=== PATIENT | male | born 1990 | race Caucasian/White ===

== ENCOUNTER 2017-02-13 19:44 | Emergency (ER) | payer OTHER ==
[~2017-02-13] VITALS: Ht 162.6 cm; Wt 74.8 kg
[~2017-02-13 19:44] MED LIST: [UNRECOGNIZED DRUG - CODE] PO
[2017-02-13] MEDS ORDERED: ONDANSETRON IV *ER 4 MG/2 ML VIAL IV ONE (20:15)
[2017-02-13] MEDS ORDERED: IV NORMAL SALINE 1000 ML BAG IV ONE ×2 (20:15→22:00)
[2017-02-13 20:23] LABS: BASOPHILS # (AUTO) 0.7 K/uL (0.0-8.0); BASOPHILS % (AUTO) 3.9 % (0.0-2.0); EOSINOPHILS # (AUTO) 0.2 K/uL (0.0-0.7); EOSINOPHILS % (AUTO) 0.9 % (0.0-7.0); HEMATOCRIT 48.5 % (40-50); HEMOGLOBIN 16.4 G/DL (14.0-18.0); LYMPHOCYTES # (AUTO) 2.5 K/UL (0.8-4.8); LYMPHOCYTES % (AUTO) 13.4 % (20.5-51.5); MEAN CORPUSCULAR HEMOGLOBIN 30.3 UUG (27.0-31.0); MEAN CORPUSCULAR HGB CONC 34 g/dL (32.0-37.0); MEAN CORPUSCULAR VOLUME 89.7 FL (82.0-92.0); MONOCYTES % (AUTO) 5.5 % (0.0-11.0); NEUTROPHILS % (AUTO) 76.3 % (38.5-71.5); PLATELET COUNT (AUTO) 273 K/UL (150-450); RED BLOOD CELL COUNT(AUTO) 5.41 MIL/UL (4.7-6.1); WHITE BLOOD COUNT (AUTO) 18.4 K/UL (4.0-11.2)
[2017-02-13] MEDS ORDERED: ONDANSETRON 4 MG/2 ML VIAL ONE (20:26)
[2017-02-13 20:29] LABS: CREATININE 0.8 mg/dL (0.6-1.3); POTASSIUM 3.1 mmol/L (3.5-5.1)
[2017-02-13] MEDS ORDERED: PANTOPRAZOLE SODIUM IV 40 MG in IV DEXTROSE 5% 100 ML IV ONE (20:30)
[2017-02-13 20:36] LABS: BILIRUBIN,DIRECT 0.1 mg/dL (0.0-0.2); BILIRUBIN,TOTAL 0.4 mg/dL (0.2-1.0); TOTAL PROTEIN, SERUM 8.3 g/dL (6.4-8.2)
[2017-02-13] MEDS ORDERED: PANTOPRAZOLE SODIUM 40 MG VIAL ONE (20:42)
[2017-02-13] MEDS ORDERED: POTASSIUM CHLORIDE 50 ML ONE (21:09)
[2017-02-13] MEDS ORDERED: MORPHINE SULFATE 4 MG/1 ML DISP.SYRIN IV ONE (21:45)
[2017-02-13] MEDS ORDERED: MORPHINE SULFATE 2 MG/1 ML DISP.SYRIN ONE (21:58)
[2017-02-13] MEDS: POTASSIUM CHLORIDE 50 ML IV SCH ×2 (22:07→23:04)
[2017-02-13] MEDS ORDERED: POTASSIUM CHLORIDE 10 MEQ CAPSULE.SA PO ONE (23:00)
[2017-02-13 23:08] LABS: *BILIRUBIN,URIN NEGATIVE (NEGATIVE); *BLOOD, URINE NEGATIVE (NEGATIVE); *CLARITY,URINE CLEAR (CLEAR); *COLOR,URINE YELLOW (YELLOW); *KETONES,URINE 3+ (NEGATIVE); *PROTEIN,URINE TRACE (NEGATIVE); *UROBILINOGEN,URINE 0.2 E.U./dl (NORMAL); LEUKOCYTE ESTERASE ,URINE NEGATIVE (NEGATIVE); NITRITE, URINE NEGATIVE (NEGATIVE); UGLUCOSE NEGATIVE (NEGATIVE)
[2017-02-13 23:16] LABS: BACTERIA,URINE FEW /HPF (NONE SEEN); RBC,URINE 0-3 /HPF (0-3); SQUAMOUS EPITHELIAL CELL,UR FEW /HPF (NONE SEEN); WBC,URINE 0-3 /HPF (0-3)
--- NOTE | 2017-02-13 23:16 | NUR ---
Patient discharged to home in stable conditon. Written and verbal after care instructions given. Patient verbalizes understanding of instructions.
[2017-02-13] MEDS ORDERED: POTASSIUM CHLORIDE 10 MEQ CAPSULE.SA ONE (23:19)
== END 2017-02-13 23:17 | disposition home or self-care (01) ==
LOC: ER 19:46
DX: R10.13 Epigastric pain (principal); E87.6 Hypokalemia; E86.0 Dehydration; R11.0 Nausea; D72.829 Elevated white blood cell count, unspecified; F10.10 Alcohol abuse, uncomplicated; F19.10 Other psychoactive substance abuse, uncomplicated; F12.90 Cannabis use, unspecified, uncomplicated
CPT/HCPCS: 36415; 83690; 85025; A4663; C9113; J2270; J2405; J3480; J7030

== ENCOUNTER 2017-03-22 21:54 | Emergency (ER) | payer OTHER ==
[~2017-03-22] VITALS: Ht 162.6 cm; Wt 72.6 kg
--- NOTE | 2017-03-22 22:09 | NUR ---
Dr. Lewis at bedside for MSE
--- NOTE | 2017-03-22 22:10 | NUR ---
Pt ambulated to room with steady gait and changed into gown. Pt c/o severe abd pain, N/V that started yesterday. at bedside, awaiting further orders.
[2017-03-22] MEDS ORDERED: LIDOCAINE VISCUS 2% 15 ML UDC MM ONE (22:15)
[2017-03-22] MEDS ORDERED: MAG HYDROX/AL HYDROX/SIMETH 30 ML LIQUID UDC PO ONE (22:15)
[2017-03-22] MEDS ORDERED: IV NORMAL SALINE 1000 ML BAG IV ONE (22:15)
[2017-03-22] MEDS ORDERED: ONDANSETRON 4 MG/2 ML VIAL IV ONE (22:15)
[2017-03-22] MEDS ORDERED: METOCLOPRAMIDE HCL 10 MG/2 ML VIAL IV ONE (22:15)
[2017-03-22] MEDS ORDERED: DICYCLOMINE HCL 10 MG/5 ML UDC LIQ PO ONE (22:15)
[2017-03-22] MEDS ORDERED: METOCLOPRAMIDE HCL 10 MG/2 ML VIAL ONE (22:38)
[2017-03-22] MEDS ORDERED: MAG HYDROX/AL HYDROX/SIMETH 30 ML LIQUID UDC ONE (22:38)
[2017-03-22] MEDS ORDERED: LIDOCAINE VISCUS 2% 15 ML UDC ONE (22:39)
[2017-03-22] MEDS ORDERED: DICYCLOMINE HCL 10 MG/5 ML UDC LIQ ONE (22:39)
[2017-03-22] MEDS ORDERED: ONDANSETRON 4 MG/2 ML VIAL ONE (22:39)
[2017-03-22 22:41] LABS: BASOPHILS # (AUTO) 0.2 K/uL (0.0-8.0); EOSINOPHILS % (AUTO) 0.1 % (0.0-7.0); HEMATOCRIT 48.8 % (40-50); HEMOGLOBIN 17.1 G/DL (14.0-18.0); LYMPHOCYTES % (AUTO) 5.6 % (20.5-51.5); MEAN CORPUSCULAR HEMOGLOBIN 31.3 UUG (27.0-31.0); MEAN CORPUSCULAR HGB CONC 35 g/dL (32.0-37.0); MEAN CORPUSCULAR VOLUME 89.5 FL (82.0-92.0); MONOCYTES # (AUTO) 0.6 K/UL (0.1-1.30); MONOCYTES % (AUTO) 3.2 % (0.0-11.0); NEUTROPHILS # (AUTO) 15.9 K/UL (1.8-8.9); NEUTROPHILS % (AUTO) 90.1 % (38.5-71.5); PLATELET COUNT (AUTO) 232 K/UL (150-450); RED BLOOD CELL COUNT(AUTO) 5.45 MIL/UL (4.7-6.1); WHITE BLOOD COUNT (AUTO) 17.7 K/UL (4.0-11.2)
--- NOTE | 2017-03-22 22:44 | NUR ---
IV established, labs drawn and sent. Pt medicated for discomfort and N/V, will monitor for effects of medication. Fluid bolus infusing freely to gravity. Pt resting in position of comfort for self.
[2017-03-22 22:59] LABS: BAND % (MANUAL) 5 % (0-10); LYMPHOCYTES % (MANUAL) 8 % (20-40); MONOCYTES % (MANUAL) 3 % (2-10); NEUTROPHILS % (MANUAL) 84 % (42-75)
[2017-03-22 23:03] LABS: BILIRUBIN,DIRECT 0.1 mg/dL (0.0-0.2); BILIRUBIN,TOTAL 0.7 mg/dL (0.2-1.0); CREATININE 1.1 mg/dL (0.6-1.3); POTASSIUM 3.2 mmol/L (3.5-5.1); TOTAL PROTEIN, SERUM 8.7 g/dL (6.4-8.2)
[2017-03-22] MEDS ORDERED: OXYCODONE/APAP 5-325 MG TABLET PO ONE ×2 (23:15→23:45)
--- NOTE | 2017-03-22 23:16 | NUR ---
Pt cont to c/o pain. MD notified and pt medicated, will monitor for effects of medication. Fluid bolus cont to infuse freely to gravity.
[2017-03-22] MEDS ORDERED: OXYCODONE/APAP 5-325 MG TABLET ONE (23:18)
[2017-03-22] MEDS ORDERED: FAMOTIDINE. 20 MG/2 ML VIAL IV ONE (23:45)
[2017-03-23] MEDS ORDERED: FAMOTIDINE. 20 MG/2 ML VIAL IV ONE
[2017-03-23] MEDS ORDERED: OXYCODONE/APAP 5-325 MG TABLET ONE
--- NOTE | 2017-03-23 | NUR ---
Pt stable for discharge per MD. IV dc'd, catheter intact. Drsg applied. No problems noted to site. Pt given ACI. Pt verbalized understanding of dc instructions. 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
[2017-03-23 00:03] VITALS: BP 152/91
== END 2017-03-23 00:03 | disposition home or self-care (01) ==
LOC: ER 21:55
DX: R10.10 Upper abdominal pain, unspecified (principal); R11.2 Nausea with vomiting, unspecified; F10.20 Alcohol dependence, uncomplicated; R55 Syncope and collapse; F12.10 Cannabis abuse, uncomplicated
CPT/HCPCS: 36415; 76705; 80048; 80076; 83690; 85025; 96361; 96374; 96375; 99285; A4663; J2405; J2765; J3490; J7030

== ENCOUNTER 2017-03-26 12:05 | Emergency (ER) | payer OTHER ==
[~2017-03-26] VITALS: Ht 162.6 cm; Wt 74.8 kg
[2017-03-26] MEDS ORDERED: PANT40TA2 PO (12:14)
[2017-03-26] MEDS ORDERED: ONDA4TAB8 PO (12:14)
[2017-03-26] MEDS ORDERED: METOCLOPRAMIDE HCL 10 MG/2 ML VIAL IM ONE (12:30)
[2017-03-26] MEDS ORDERED: diphenhydrAMINE 50 MG/1 ML VIAL IM ONE (12:30)
[2017-03-26] MEDS ORDERED: PANTOPRAZOLE SODIUM 40 MG TABLET.DR PO ONE ×2 (12:30→12:48)
--- NOTE | 2017-03-26 12:30 | NUR ---
PT IS IN ROOM #2B, DR GAONA EVALUATED THE PT.
[2017-03-26] MEDS ORDERED: diphenhydrAMINE 50 MG/1 ML VIAL ONE (12:46)
[2017-03-26] MEDS ORDERED: METOCLOPRAMIDE HCL 10 MG/2 ML VIAL ONE (12:47)
[2017-03-26] MEDS ORDERED: MAG HYDROX/AL HYDROX/SIMETH 30 ML LIQUID UDC PO ONE (13:30)
[2017-03-26] MEDS ORDERED: LIDOCAINE VISCUS 2% 15 ML UDC MM ONE (13:30)
--- NOTE | 2017-03-26 13:37 | NUR ---
PT WAS D/C TO HOME. D/C INSTRUCTIONS GIVE TO THE PT.
[2017-03-26 13:38] VITALS: BP 145/76
[2017-03-26] MEDS ORDERED: MAG HYDROX/AL HYDROX/SIMETH 30 ML LIQUID UDC ONE (13:44)
[2017-03-26] MEDS ORDERED: LIDOCAINE VISCUS 2% 15 ML UDC ONE (13:44)
== END 2017-03-26 13:39 | disposition home or self-care (01) ==
LOC: ER 12:05
DX: K29.70 Gastritis, unspecified, without bleeding (principal); F10.10 Alcohol abuse, uncomplicated; F12.10 Cannabis abuse, uncomplicated
CPT/HCPCS: 96372 ×2; 99284; A4663; J1200; J2765

== ENCOUNTER 2017-05-07 06:25 | Emergency (ER) | payer OTHER ==
[~2017-05-07] VITALS: Ht 162.6 cm; Wt 74.8 kg
[~2017-05-07 06:25] MED LIST changes: +ONDA4TAB8 PO; +PANT40TA2 PO
[2017-05-07 07:15] LABS: BASOPHILS # (AUTO) 0.1 K/uL (0.0-8.0); BASOPHILS % (AUTO) 0.4 % (0.0-2.0); EOSINOPHILS # (AUTO) 0.4 K/uL (0.0-0.7); HEMATOCRIT 48.4 % (40-50); HEMOGLOBIN 16.6 G/DL (14.0-18.0); LYMPHOCYTES % (AUTO) 20.4 % (20.5-51.5); MEAN CORPUSCULAR HGB CONC 34 g/dL (32.0-37.0); MEAN CORPUSCULAR VOLUME 90.6 FL (82.0-92.0); MONOCYTES # (AUTO) 0.9 K/UL (0.1-1.30); MONOCYTES % (AUTO) 5.8 % (0.0-11.0); NEUTROPHILS # (AUTO) 10.5 K/UL (1.8-8.9); NEUTROPHILS % (AUTO) 70.4 % (38.5-71.5); PLATELET COUNT (AUTO) 235 K/UL (150-450); RED BLOOD CELL COUNT(AUTO) 5.35 MIL/UL (4.7-6.1); WHITE BLOOD COUNT (AUTO) 14.9 K/UL (4.0-11.2)
[2017-05-07] MEDS: IV NORMAL SALINE 1000 ML BAG IV ONE (07:17)
[2017-05-07] MEDS: METOCLOPRAMIDE HCL 10 MG/2 ML VIAL IV ONE (07:17)
[2017-05-07] MEDS: LORAZEPAM 2 MG/1 ML VIAL IV ONE (07:18)
[2017-05-07] MEDS: diphenhydrAMINE 50 MG/1 ML VIAL IV ONE (07:18)
[2017-05-07] MEDS ORDERED: METOCLOPRAMIDE HCL 10 MG/2 ML VIAL ONE (07:22)
[2017-05-07] MEDS ORDERED: diphenhydrAMINE 50 MG/1 ML VIAL ONE (07:22)
--- NOTE | 2017-05-07 07:22 | NUR ---
SBAR report given to RADHA Del Toro
[2017-05-07] MEDS ORDERED: LORAZEPAM 2 MG/1 ML VIAL ONE (07:23)
[2017-05-07 07:34] LABS: ETHANOL < 3 MG/DL (0-0)
--- NOTE | 2017-05-07 07:35 | NUR ---
PATIENT IS SLEEPY BUT AROUSES EASY. DENIES COMPLAINTS AT THIS TIME.
[2017-05-07 07:40] LABS: BAND % (MANUAL) 4 % (0-10); EOSINOPHILS % (MANUAL) 1 % (0-8); LYMPHOCYTES % (MANUAL) 19 % (20-40); MONOCYTES % (MANUAL) 8 % (2-10); NEUTROPHILS % (MANUAL) 68 % (42-75)
[2017-05-07 07:53] LABS: CREATININE 0.9 mg/dL (0.6-1.3); POTASSIUM 3.3 mmol/L (3.5-5.1)
--- NOTE | 2017-05-07 07:59 | NUR ---
PATIENT TO CT SCAN. FAMILY IN ROOM.
[2017-05-07 08:00] LABS: BILIRUBIN,DIRECT 0.1 mg/dL (0.0-0.2); BILIRUBIN,TOTAL 0.4 mg/dL (0.2-1.0); TOTAL PROTEIN, SERUM 7.8 g/dL (6.4-8.2)
--- NOTE | 2017-05-07 09:15 | NUR ---
DR HUNG WAS AT BEDSIDE SPEAKING TO PATIENT AND ABOUT TEST RESULTS AND PLAN. IV DC'D, CATHETER TIP INTACT, PRESSURE APPLIED ,DRESSING APPLIED. DC, RX AND FOLLOW UP INSTRUCTIONS GIVEN AND EXPLAINED TO PATIENT AND WHO STATE THEY UNDERSTAND ALL INSTRUCTIONS.
[2017-05-07 09:18] VITALS: BP 121/74
== END 2017-05-07 09:19 | disposition home or self-care (01) ==
LOC: ER 06:28
DX: R10.10 Upper abdominal pain, unspecified (principal); R11.2 Nausea with vomiting, unspecified
CPT/HCPCS: 36415; 71010; 74176; 80048; 80076; 83690; 85025; 96361; 96374; 96375; 99285; A4663; G0480; J1200; J2060; J2765; J7030

== ENCOUNTER 2018-01-02 06:58 | Emergency (ER) | payer SELFPAY ==
[~2018-01-02] VITALS: Ht 162.6 cm; Wt 70.3 kg
--- NOTE | 2018-01-02 07:22 | NUR ---
In room 2a. family at the bedside. c/o nausea. c/o vomiting all night since 5pm yesterday Addendum: 01/02/18 at 0726 by DEION in 2b , not 2a
--- NOTE | 2018-01-02 07:35 | NUR ---
seen by MD Dr Conley. IV #20 inserted via right AC, blood drawn for lab
[2018-01-02] MEDS ORDERED: METOCLOPRAMIDE HCL 10 MG/2 ML VIAL IV ONE (07:45)
[2018-01-02] MEDS ORDERED: IV NORMAL SALINE 1000 ML BAG IV ONE (07:45)
[2018-01-02] MEDS ORDERED: KETOROLAC TROMETHAMINE 15 MG INJ IV ONE (07:45)
--- NOTE | 2018-01-02 07:50 | NUR ---
IV NS 1liter started via right AC, toradol and reglan both given IV.
[2018-01-02 07:55] LABS: BASOPHILS % (AUTO) 0.2 % (0.0-2.0); LYMPHOCYTES # (AUTO) 0.7 K/uL (20.0-40.0); MONOCYTES # (AUTO) 0.7 K/uL (2.0-10.0)
[2018-01-02] MEDS ORDERED: KETOROLAC TROMETHAMINE 15 MG INJ ONE (07:56)
[2018-01-02] MEDS ORDERED: METOCLOPRAMIDE HCL 10 MG/2 ML VIAL ONE (07:57)
[2018-01-02 08:02] LABS: CREATININE 0.9 mg/dL (0.6-1.3); POTASSIUM 3.5 mmol/L (3.5-5.1)
[2018-01-02 08:06] LABS: HEMATOCRIT 44.5 % (36.7-47.1); HEMOGLOBIN 15.9 g/dL (12.5-16.3); LYMPHOCYTES % (AUTO) 6.2 % (20.5-51.5); MEAN CORPUSCULAR HEMOGLOBIN 32.2 uug (23.8-33.4); MEAN CORPUSCULAR HGB CONC 36 g/dL (32.5-36.3); MEAN CORPUSCULAR VOLUME 90.3 fL (73.0-96.2); MONOCYTES % (AUTO) 6.1 % (0.0-11.0); NEUTROPHILS # (AUTO) 10.4 K/uL (1.8-8.9); NEUTROPHILS % (AUTO) 87.5 % (38.5-71.5); PLATELET COUNT (AUTO) 217 K/uL (152-348); RED BLOOD CELL COUNT(AUTO) 4.93 MIL/uL (4.06-5.63); WHITE BLOOD COUNT (AUTO) 11.9 K/uL (3.6-10.2)
[2018-01-02 08:08] LABS: BILIRUBIN,DIRECT 0.2 mg/dL (0.0-0.2); BILIRUBIN,TOTAL 0.8 mg/dL (0.2-1.0); TOTAL PROTEIN, SERUM 8.3 g/dL (6.4-8.2)
--- NOTE | 2018-01-02 08:31 | NUR ---
Re-evaluated by Dr Conley. Discharge instructions discussed with patient. NS infused and completed. denies no paon and dicomfort.
[2018-01-02 08:36] VITALS: BP 114/78
== END 2018-01-02 08:42 | disposition home or self-care (01) ==
LOC: ER 07:01
DX: K29.70 Gastritis, unspecified, without bleeding (principal); F12.10 Cannabis abuse, uncomplicated; Z79.899 Other long term (current) drug therapy
CPT/HCPCS: 36415; 70030-TC; 83690; 85025; A4663; J1885; J2765

== ENCOUNTER 2018-05-31 07:29 | Emergency (ER) | payer SELFPAY ==
[~2018-05-31] VITALS: Ht 162.6 cm; Wt 68.0 kg
[2018-05-31] MEDS ORDERED: FAMOTIDINE. 20 MG/2 ML VIAL IV ONE ×2 (07:45→07:48)
[2018-05-31] MEDS ORDERED: IV NORMAL SALINE 1000 ML BAG IV ONE (07:45)
[2018-05-31] MEDS ORDERED: LORAZEPAM 2 MG/1 ML VIAL IV ONE (07:45)
[2018-05-31] MEDS ORDERED: METOCLOPRAMIDE HCL 10 MG/2 ML VIAL IV ONE (07:45)
[2018-05-31] MEDS ORDERED: METOCLOPRAMIDE HCL 10 MG/2 ML VIAL ONE (07:48)
[2018-05-31] MEDS ORDERED: LORAZEPAM 2 MG/1 ML VIAL ONE (07:49)
[2018-05-31 07:58] LABS: BASOPHILS # (AUTO) 0.1 K/uL (0.0-8.0); BASOPHILS % (AUTO) 0.4 % (0.0-2.0); EOSINOPHILS # (AUTO) 0.5 K/uL (0.0-0.7); EOSINOPHILS % (AUTO) 3.5 % (0.0-7.0); MEAN CORPUSCULAR HEMOGLOBIN 32.2 uug (23.8-33.4); MEAN CORPUSCULAR HGB CONC 36 g/dL (32.5-36.3); MEAN CORPUSCULAR VOLUME 89.9 fL (73.0-96.2); MONOCYTES # (AUTO) 0.8 K/uL (2.0-10.0); MONOCYTES % (AUTO) 5.2 % (0.0-11.0); NEUTROPHILS # (AUTO) 10.7 K/uL (1.8-8.9); NEUTROPHILS % (AUTO) 70.9 % (38.5-71.5); PLATELET COUNT (AUTO) 269 K/uL (152-348); RED BLOOD CELL COUNT(AUTO) 5.44 MIL/uL (4.06-5.63)
[2018-05-31 08:06] LABS: POTASSIUM 4.1 mmol/L (3.5-5.1)
[2018-05-31 08:07] LABS: HEMATOCRIT 48.9 % (36.7-47.1); HEMOGLOBIN 17.5 g/dL (12.5-16.3)
[2018-05-31 08:11] LABS: BILIRUBIN,DIRECT 0.1 mg/dL (0.0-0.2); BILIRUBIN,TOTAL 0.4 mg/dL (0.2-1.0); TOTAL PROTEIN, SERUM 8.3 g/dL (6.4-8.2)
--- NOTE | 2018-05-31 08:33 | NUR ---
Patient is resting comfortably on gurney with eyes closed, denies nause@this time, no retching seen now
--- NOTE | 2018-05-31 09:07 | NUR ---
IV removed. Catheter intact and site benign. Pressure and 4x4 gauze applied to site. No bleeding noted. Patient discharged to home in stable conditon. Written and verbal after care instructions given to patient and patient's fiancee. Patient and fiancee verbalized understanding of instructions.
== END 2018-05-31 09:16 | disposition home or self-care (01) ==
LOC: ER 07:29
DX: R11.2 Nausea with vomiting, unspecified (principal); F14.10 Cocaine abuse, uncomplicated; F12.10 Cannabis abuse, uncomplicated
CPT/HCPCS: 36415; 83690; 85025; A4663; J2060; J2765; J3490; J7030

== ENCOUNTER 2018-07-15 21:04 | Emergency (ER) | payer MEDICAID ==
[~2018-07-15] VITALS: Ht 162.6 cm; Wt 74.8 kg
[2018-07-15] MEDS ORDERED: ALBUTEROL SULFATE 2.5 MG/3 ML NEBU ONE (21:29)
[2018-07-15] MEDS ORDERED: IPRATROPIUM BROMIDE 0.5 MG/2.5 ML NEBU ONE (21:30)
[2018-07-15] MEDS: ALBUTEROL SULFATE 2.5 MG/3 ML NEBU NEB ONE (21:31)
[2018-07-15] MEDS: IPRATROPIUM BROMIDE 0.5 MG/2.5 ML NEBU NEB ONE (21:31)
[2018-07-15] MEDS ORDERED: predniSONE 20 MG TABLET ONE (21:34)
[2018-07-15] MEDS: predniSONE 20 MG TABLET PO ONE (21:35)
--- NOTE | 2018-07-15 21:56 | NUR ---
Patient discharged to home in stable conditon. Written and verbal after care instructions given. Patient verbalizes understanding of instructions. Ambulated from ER with stable gait. All belongings with patient.
[2018-07-15 21:58] VITALS: BP 141/87
== END 2018-07-15 21:59 | disposition home or self-care (01) ==
LOC: ER 21:05
DX: J98.01 Acute bronchospasm (principal); F12.10 Cannabis abuse, uncomplicated
CPT/HCPCS: 94640; 99283; J7512; A4663; J3590

== ENCOUNTER 2018-07-18 01:55 | Emergency (ER) | payer MEDICAID ==
[~2018-07-18] VITALS: Ht 162.6 cm; Wt 74.8 kg
[2018-07-18] MEDS ORDERED: ALBUTEROL SULFATE 2.5 MG/3 ML NEBU ONE (02:12)
[2018-07-18] MEDS ORDERED: IPRATROPIUM BROMIDE 0.5 MG/2.5 ML NEBU ONE (02:12)
[2018-07-18] MEDS ORDERED: predniSONE 10 MG TABLET ONE (02:14)
[2018-07-18] MEDS ORDERED: predniSONE 50 MG TABLET ONE (02:14)
[2018-07-18] MEDS ORDERED: predniSONE 20 MG TABLET PO ONE (02:15)
[2018-07-18] MEDS ORDERED: IPRATROPIUM BROMIDE 0.5 MG/2.5 ML NEBU NEB ONE (02:15)
[2018-07-18] MEDS ORDERED: ALBUTEROL SULFATE 2.5 MG/3 ML NEBU NEB ONE (02:15)
--- NOTE | 2018-07-18 02:41 | NUR ---
Patient discharged to home in stable conditon. Written and verbal after care instructions given. Patient verbalizes understanding of instructions.
== END 2018-07-18 02:41 | disposition home or self-care (01) ==
LOC: ER 01:56
DX: J98.01 Acute bronchospasm (principal); F12.10 Cannabis abuse, uncomplicated
CPT/HCPCS: 94640; 99283; J7512 ×2; A4663; J3590

== ENCOUNTER 2018-10-09 19:01 | Emergency (ER) | payer MEDICAID, OTHER ==
[~2018-10-09] VITALS: Ht 160 cm; Wt 74.8 kg
[2018-10-09] MEDS ORDERED: [UNRECOGNIZED DRUG - REMARK] (19:06)
[2018-10-09] MEDS ORDERED: ALBUTEROL SULFATE 2.5 MG/3 ML NEBU NEB ONE ×2 (19:30→20:00)
[2018-10-09] MEDS ORDERED: ALBUTEROL SULFATE 2.5 MG/3 ML NEBU ONE (20:05)
--- NOTE | 2018-10-09 20:33 | NUR ---
Patient discharged to home in stable conditon. Written and verbal after care instructions given. Patient verbalizes understanding of instructions.
== END 2018-10-09 20:34 | disposition home or self-care (01) ==
LOC: ER 19:01
DX: J98.01 Acute bronchospasm (principal); Z71.6 Tobacco abuse counseling; J45.909 Unspecified asthma, uncomplicated; F12.10 Cannabis abuse, uncomplicated; F17.290 Nicotine dependence, other tobacco product, uncomplicated
CPT/HCPCS: A4663

== ENCOUNTER 2018-10-16 14:43 | Emergency (ER) | payer OTHER ==
[~2018-10-16] VITALS: Ht 165.1 cm; Wt 74.8 kg
[~2018-10-16 14:43] MED LIST changes: -ONDA4TAB8 PO; -PANT40TA2 PO; -[UNRECOGNIZED DRUG - CODE] PO; +[UNRECOGNIZED DRUG - REMARK]
[2018-10-16] MEDS ORDERED: ALBUTEROL SULFATE 2.5 MG/ 0.5 ML NEBU NEB ONE (15:30)
[2018-10-16] MEDS ORDERED: ALBUTEROL SULFATE 2.5 MG/3 ML NEBU ONE (15:37)
--- NOTE | 2018-10-16 15:55 | NUR ---
Neb treatment is done. Patient says, "I feel the same. It has not improved." notified
--- NOTE | 2018-10-16 15:57 | NUR ---
Reid jones in ED - 10/16/18 at 1558 by CHRIS Patient discharged to home in stable conditon & brisk steady gait. Written and verbal after care instructions given to patient. Patient verbalizes understanding of instructions.
[2018-10-16] MEDS ORDERED: predniSONE 50 MG TABLET ONE ×2 (16:10→16:16)
[2018-10-16] MEDS ORDERED: predniSONE 10 MG TABLET ONE ×2 (16:10→16:16)
[2018-10-16] MEDS ORDERED: predniSONE 20 MG TABLET PO ONE (16:15)
--- NOTE | 2018-10-16 16:25 | NUR ---
Patient is resting comfortably on gurney while intermittently using his personal electronic device, NAD, speaks full sentences comfortably, occasional congestive coughing heard.
--- NOTE | 2018-10-16 16:57 | NUR ---
Patient discharged to home in stable conditon. Written and verbal after care instructions given. Patient verbalizes understanding of instructions.
== END 2018-10-16 16:58 | disposition home or self-care (01) ==
LOC: ER 14:43
DX: J45.901 Unspecified asthma with (acute) exacerbation (principal); J06.9 Acute upper respiratory infection, unspecified; F12.10 Cannabis abuse, uncomplicated; F17.200 Nicotine dependence, unspecified, uncomplicated
CPT/HCPCS: 71045; 94640; 99283; J7512 ×2; A4663

== ENCOUNTER 2018-12-17 20:22 | Emergency (ER) | payer OTHER ==
[~2018-12-17] VITALS: Ht 162.6 cm; Wt 74.8 kg
--- NOTE | 2018-12-17 21:05 | NUR ---
Pt. ambulated into ED w/ c/o SOB/wheezing x 1 week, A/Ox4, RR even w/ increased work of breathing noted, denies, TOMAS/F/C/N/V/D, pt. placed on O2 monitor and hall monitor, bed in low position,
[2018-12-17] MEDS ORDERED: methylPREDNISolone SOD SUCC 125 MG/2 ML VIAL IV ONE (21:15)
[2018-12-17] MEDS ORDERED: IPRATROPIUM BROMIDE 0.5 MG/2.5 ML NEBU NEB ONE (21:15)
[2018-12-17] MEDS ORDERED: ALBUTEROL SULFATE 2.5 MG/3 ML NEBU NEB ONE (21:15)
[2018-12-17] MEDS ORDERED: IV NORMAL SALINE 1000 ML BAG IV ONE ×2 (21:15)
--- NOTE | 2018-12-17 21:15 | NUR ---
at bedside for MSE
[2018-12-17] MEDS ORDERED: ALBUTEROL SULFATE 2.5 MG/3 ML NEBU ONE (21:24)
[2018-12-17] MEDS ORDERED: IPRATROPIUM BROMIDE 0.5 MG/2.5 ML NEBU ONE (21:24)
[2018-12-17] MEDS ORDERED: methylPREDNISolone SOD SUCC 125 MG/2 ML VIAL ONE (21:29)
--- NOTE | 2018-12-17 23:25 | NUR ---
Patient discharged to home in stable conditon. Written and verbal after care instructions given. Patient verbalizes understanding of instructions. Pt. d/c w/ prescription per MD order, d/c papers signed, all belongings w pt., ID band/IV removed, ambulated off unit w/ steady gait, NAD
== END 2018-12-17 23:30 | disposition home or self-care (01) ==
LOC: ER 20:24
DX: J45.901 Unspecified asthma with (acute) exacerbation (principal); F12.10 Cannabis abuse, uncomplicated; F17.200 Nicotine dependence, unspecified, uncomplicated
CPT/HCPCS: 71045; 94644; 96374; 99285; J2930; A4663; J3590; J7030

== ENCOUNTER 2019-02-16 20:25 | Emergency (ER) | payer OTHER ==
[~2019-02-16] VITALS: Ht 162.6 cm; Wt 74.8 kg
--- NOTE | 2019-02-16 20:54 | NUR ---
Dr. Lewis at bedside for MSE.
--- NOTE | 2019-02-16 20:56 | NUR ---
Respiratory at bedside.
[2019-02-16] MEDS ORDERED: ALBUTEROL SULFATE 2.5 MG/3 ML NEBU NEB ONE (21:00)
[2019-02-16] MEDS ORDERED: IPRATROPIUM BROMIDE 0.5 MG/2.5 ML NEBU NEB ONE (21:00)
[2019-02-16] MEDS ORDERED: ALBUTEROL SULFATE 2.5 MG/3 ML NEBU ONE (21:02)
[2019-02-16] MEDS ORDERED: IPRATROPIUM BROMIDE 0.5 MG/2.5 ML NEBU ONE (21:02)
[2019-02-16] MEDS ORDERED: predniSONE 20 MG TABLET ONE (21:04)
[2019-02-16] MEDS ORDERED: predniSONE 20 MG TABLET PO ONE (21:15)
--- NOTE | 2019-02-16 21:24 | NUR ---
Patient discharged to home in stable conditon. Written and verbal after care instructions given. Patient verbalizes understanding of instructions. Pt ambulated out of ER with steady gait, no acute signs of distress, VSS, all belongings taken.
[2019-02-16 21:25] VITALS: BP 119/95
== END 2019-02-16 21:25 | disposition home or self-care (01) ==
LOC: ER 20:26
DX: J45.909 Unspecified asthma, uncomplicated (principal); F12.10 Cannabis abuse, uncomplicated; Z87.891 Personal history of nicotine dependence
CPT/HCPCS: 94640; 99283; J7512; A4663; J3590

== ENCOUNTER 2019-08-15 04:42 | Emergency (ER) | payer SELFPAY ==
[~2019-08-15] VITALS: Ht 162.6 cm; Wt 74.8 kg
[2019-08-15] MEDS ORDERED: ALBUTEROL SULFATE 2.5 MG/3 ML NEBU ONE ×3 (04:55→05:47)
[2019-08-15] MEDS ORDERED: IPRATROPIUM BROMIDE 0.5 MG/2.5 ML NEBU ONE ×3 (04:55→05:47)
[2019-08-15] MEDS ORDERED: methylPREDNISolone SOD SUCC 125 MG/2 ML VIAL ONE (04:57)
[2019-08-15] MEDS ORDERED: ALBUTEROL SULFATE 2.5 MG/3 ML NEBU NEB ONE ×2 (05:00)
[2019-08-15] MEDS ORDERED: MAGNESIUM SULFATE/D5W 200 ML ONE (05:00)
[2019-08-15] MEDS: MAGNESIUM SULFATE/D5W 100 ML IV SCH ×2 (05:00→05:44)
[2019-08-15] MEDS ORDERED: methylPREDNISolone SOD SUCC 125 MG/2 ML VIAL IV ONE (05:00)
[2019-08-15] MEDS ORDERED: IPRATROPIUM BROMIDE 0.5 MG/2.5 ML NEBU NEB ONE ×2 (05:00)
--- NOTE | 2019-08-15 05:48 | NUR ---
Patient stating "I feel better now."
[2019-08-15] MEDS: ALBUTEROL SULFATE 2.5 MG/3 ML NEBU NEB ONE ×2 (05:56→06:22)
[2019-08-15] MEDS: IPRATROPIUM BROMIDE 0.5 MG/2.5 ML NEBU NEB ONE ×2 (05:56→06:22)
--- NOTE | 2019-08-15 06:30 | NUR ---
IV removed. Catheter intact and site benign. Pressure and 4x4 gauze applied to site. No bleeding noted.
--- NOTE | 2019-08-15 06:36 | NUR ---
Patient discharged to home in stable conditon with mother taking patient home. Written and verbal after care instructions given. Patient verbalizes understanding of instructions. Walked out of ER with no distress noted.
[2019-08-15 06:37] VITALS: BP 155/101
== END 2019-08-15 06:37 | disposition home or self-care (01) ==
LOC: ER 04:43
DX: J45.901 Unspecified asthma with (acute) exacerbation (principal); F12.10 Cannabis abuse, uncomplicated; F17.210 Nicotine dependence, cigarettes, uncomplicated
CPT/HCPCS: 93005; 94640; 96365; 96366; 96375; 99283; J2930; J3475; A4663; J3590

== ENCOUNTER 2019-11-18 09:41 | Emergency (ER) | payer MEDICAID, OTHER ==
[~2019-11-18] VITALS: Ht 170.2 cm; Wt 74.8 kg
--- NOTE | 2019-11-18 09:57 | NUR ---
@bedside, MSE in progress
[2019-11-18] MEDS ORDERED: predniSONE 20 MG TABLET PO ONE (10:00)
[2019-11-18] MEDS ORDERED: predniSONE 20 MG TABLET ONE (10:03)
--- NOTE | 2019-11-18 10:07 | NUR ---
Patient discharged to home in stable conditIon & brisk steady gait. Written and verbal after care instructions given to patient. Patient verbalized understanding & compliance of instructions.
== END 2019-11-18 10:09 | disposition home or self-care (01) ==
LOC: ER 09:41
DX: J45.901 Unspecified asthma with (acute) exacerbation (principal); F17.200 Nicotine dependence, unspecified, uncomplicated
CPT/HCPCS: 99283; J7512; A4663

== ENCOUNTER 2020-01-28 10:24 | Emergency (ER) | payer MEDICAID, OTHER ==
[~2020-01-28] VITALS: Ht 162.6 cm; Wt 77.1 kg
--- NOTE | 2020-01-28 10:35 | NUR ---
PATIENT WAS MSE BY DR PRICE IN ROOM 05A.
[2020-01-28] MEDS ORDERED: ALBUTEROL SULFATE 2.5 MG/3 ML NEBU ONE (10:43)
[2020-01-28] MEDS ORDERED: IPRATROPIUM BROMIDE 0.5 MG/2.5 ML NEBU ONE (10:43)
[2020-01-28] MEDS ORDERED: IPRATROPIUM BROMIDE 0.5 MG/2.5 ML NEBU NEB ONE (10:45)
[2020-01-28] MEDS ORDERED: ALBUTEROL SULFATE 2.5 MG/3 ML NEBU NEB ONE (10:45)
--- NOTE | 2020-01-28 11:10 | NUR ---
Patient discharged to home in stable condition. Written and verbal after care instructions given. Patient verbalizes understanding of instructions. Stressed follow up or return to ER for worsening s/s.
[2020-01-28 11:12] VITALS: BP 144/78
== END 2020-01-28 11:13 | disposition home or self-care (01) ==
LOC: ER 10:24
DX: J45.901 Unspecified asthma with (acute) exacerbation (principal)
CPT/HCPCS: A4663; J3590

== ENCOUNTER 2020-03-20 20:50 | Emergency (ER) | payer OTHER ==
[~2020-03-20] VITALS: Ht 162.6 cm; Wt 75.7 kg
--- NOTE | 2020-03-20 21:03 | NUR ---
PT IS A/OX4, PRESENTS TO THE ER C/O DIFFICULTY BREATHING. PT ATTRIBUTES IT TO HIS HX OF ASTHMA, AND REPORTS HE LOST HIS INHALER APPROXIMATELY 3 DAYS AGO. SPO2 99% ON RA. PT IS ABLE TO SPEAK W/O DIFFICULTY, MINOR DEGREE OF LABORED BREATHING UPON ASSESSMENT. VSS. PT DENIES C/P, DIZZZINESS, N/V/D.
[2020-03-20] MEDS ORDERED: predniSONE 20 MG TABLET ONE (21:17)
[2020-03-20] MEDS: predniSONE 20 MG TABLET PO ONE (21:19)
[2020-03-20 21:20] VITALS: BP 142/82
== END 2020-03-20 21:22 | disposition home or self-care (01) ==
LOC: ER 20:51
DX: J45.909 Unspecified asthma, uncomplicated (principal); F17.210 Nicotine dependence, cigarettes, uncomplicated
CPT/HCPCS: 99283; 99406; J7512; A4663

== ENCOUNTER 2020-05-15 14:09 | Emergency (ER) | payer OTHER ==
[~2020-05-15] VITALS: Ht 162.6 cm; Wt 74.8 kg
--- NOTE | 2020-05-15 14:28 | NUR ---
Patient discharged to home in stable condition. Written and verbal after care instructions given. Patient verbalizes understanding of instructions. Stressed follow up or return to ER for worsening s/s.pt walks in stready gait
[2020-05-15] MEDS ORDERED: predniSONE 50 MG TABLET ONE (14:30)
[2020-05-15] MEDS ORDERED: predniSONE 10 MG TABLET ONE (14:30)
[2020-05-15] MEDS ORDERED: predniSONE 20 MG TABLET PO ONE (14:30)
== END 2020-05-15 14:31 | disposition home or self-care (01) ==
LOC: ER 14:09
DX: J45.901 Unspecified asthma with (acute) exacerbation (principal); F17.210 Nicotine dependence, cigarettes, uncomplicated; F12.10 Cannabis abuse, uncomplicated
CPT/HCPCS: 99283; 99406; J7512 ×2; A4663

== ENCOUNTER 2020-06-09 20:17 | Emergency (ER) | payer OTHER ==
[~2020-06-09] VITALS: Ht 162.6 cm; Wt 70.3 kg
--- NOTE | 2020-06-09 20:28 | NUR ---
MD at bedside for assessment, respiratory called at this time
[2020-06-09] MEDS ORDERED: ALBUTEROL SULFATE 2.5 MG/3 ML NEBU ONE (20:41)
[2020-06-09] MEDS ORDERED: IPRATROPIUM BROMIDE 0.5 MG/2.5 ML NEBU ONE (20:41)
[2020-06-09] MEDS ORDERED: MAGNESIUM SULFATE/D5W 200 ML ONE (20:42)
[2020-06-09] MEDS ORDERED: methylPREDNISolone SOD SUCC 125 MG/2 ML VIAL ONE (20:42)
[2020-06-09] MEDS ORDERED: ALBUTEROL SULFATE 2.5 MG/3 ML NEBU NEB ONE (20:45)
[2020-06-09] MEDS ORDERED: MAGNESIUM SULFATE 2 GM in IV DEXTROSE 5% 100 ML IV ONE (20:45)
[2020-06-09] MEDS ORDERED: IPRATROPIUM BROMIDE 0.5 MG/2.5 ML NEBU NEB ONE (20:45)
[2020-06-09] MEDS ORDERED: IV NORMAL SALINE 1000 ML BAG IV ONE (20:45)
[2020-06-09] MEDS ORDERED: methylPREDNISolone SOD SUCC 125 MG/2 ML VIAL IV ONE (20:45)
--- NOTE | 2020-06-09 21:07 | NUR ---
covid swab collected and sent to lab
[2020-06-09 21:15] LABS: BASOPHILS % (AUTO) 0.6 % (0.0-2.0); EOSINOPHILS % (AUTO) 13.6 % (0.0-7.0); HEMATOCRIT 46.7 % (36.7-47.1); HEMOGLOBIN 16.3 g/dL (12.5-16.3); LYMPHOCYTES # (AUTO) 2.8 K/uL (20.0-40.0); LYMPHOCYTES % (AUTO) 38.2 % (20.5-51.5); MEAN CORPUSCULAR HEMOGLOBIN 32.2 uug (23.8-33.4); MEAN CORPUSCULAR HGB CONC 35 g/dL (32.5-36.3); MEAN CORPUSCULAR VOLUME 91.9 fL (73.0-96.2); MONOCYTES # (AUTO) 0.6 K/uL (2.0-10.0); MONOCYTES % (AUTO) 8.9 % (0.0-11.0); NEUTROPHILS # (AUTO) 2.8 K/uL (1.8-8.9); NEUTROPHILS % (AUTO) 38.7 % (38.5-71.5); PLATELET COUNT (AUTO) 238 K/uL (152-348); RED BLOOD CELL COUNT(AUTO) 5.08 MIL/uL (4.06-5.63); WHITE BLOOD COUNT (AUTO) 7.2 K/uL (3.6-10.2)
[2020-06-09 21:19] LABS: CREATININE 0.9 mg/dL (0.6-1.3); POTASSIUM 4.1 mmol/L (3.5-5.1)
[2020-06-09 21:32] LABS: BILIRUBIN,DIRECT 0.1 mg/dL (0.0-0.2); BILIRUBIN,TOTAL 0.3 mg/dL (0.2-1.0); TOTAL PROTEIN, SERUM 7.2 g/dL (6.4-8.2)
--- NOTE | 2020-06-09 22:27 | NUR ---
patient tolerating room air well with light excercise, oxygen saturation noted at 96%
--- NOTE | 2020-06-09 22:28 | NUR ---
Patient discharged to home in stable condition. Took all belongings, no signs of acute distress, all needs met. instucted to follow up with PCP. Written and verbal after care instructions given. Patient verbalizes understanding of instructions. Stressed follow up or return to ER for worsening s/s.
[2020-06-09 22:33] VITALS: BP 133/80
== END 2020-06-09 22:30 | disposition home or self-care (01) ==
LOC: ER 20:19
DX: J45.901 Unspecified asthma with (acute) exacerbation (principal); R94.31 Abnormal electrocardiogram [ECG] [EKG]; R05 Cough; Z20.828 Contact with and (suspected) exposure to other viral communicable diseases
CPT/HCPCS: 36415; 71045; 80048; 80076; 83880; 84484; 85025; 87426; 93005; 94644; 96365; 96375; 99285; J2930; J3475; 70030-TC; A4663; J3590; J7030

== ENCOUNTER 2020-08-31 20:58 | Emergency (ER) | payer OTHER ==
[~2020-08-31] VITALS: Ht 162.6 cm; Wt 74.8 kg
[2020-08-31] MEDS ORDERED: IPRATROPIUM BROMIDE 0.5 MG/2.5 ML NEBU NEB ONE (21:15)
[2020-08-31] MEDS ORDERED: ALBUTEROL SULFATE 2.5 MG/3 ML NEBU NEB ONE (21:15)
[2020-08-31] MEDS ORDERED: IPRATROPIUM BROMIDE 0.5 MG/2.5 ML NEBU ONE (21:26)
[2020-08-31] MEDS ORDERED: ALBUTEROL SULFATE 2.5 MG/3 ML NEBU ONE (21:26)
--- NOTE | 2020-08-31 21:40 | NUR ---
After breath Tx patient states "I feel alot better now."
[2020-08-31 21:51] VITALS: BP 150/90
== END 2020-08-31 21:51 | disposition home or self-care (01) ==
LOC: ER 20:58
DX: J45.901 Unspecified asthma with (acute) exacerbation (principal)
CPT/HCPCS: A4663; J3590

== ENCOUNTER 2020-10-02 13:01 | Emergency (ER) | payer OTHER ==
[~2020-10-02] VITALS: Ht 162.6 cm; Wt 74.8 kg
--- NOTE | 2020-10-02 13:11 | NUR ---
Pt presents to ER requesting medication refill for his inhaler. States he had an asthma attack last night and called paramedics who provided a breathing tx. Pt placed in RM5. NAD noted. Awaiting MD duque.
--- NOTE | 2020-10-02 13:25 | NUR ---
Per Dr. Erickson, pt stable for discharge. DC instructions and prescriptions given and reviewed with patient. Verbalized understanding. Left ER in stable condition.
== END 2020-10-02 13:27 | disposition home or self-care (01) ==
LOC: ER 13:01
DX: J45.901 Unspecified asthma with (acute) exacerbation (principal); Z76.0 Encounter for issue of repeat prescription
CPT/HCPCS: A4663

== ENCOUNTER 2021-12-11 12:29 | Emergency (ER) | payer OTHER ==
[~2021-12-11] VITALS: Ht 162.6 cm; Wt 74.4 kg
[2021-12-11] MEDS ORDERED: IV NORMAL SALINE 1000 ML BAG IV ONE (13:00)
[2021-12-11] MEDS ORDERED: PANTOPRAZOLE SODIUM 40 MG VIAL IV ONE (13:00)
[2021-12-11] MEDS ORDERED: ONDANSETRON 4 MG/2 ML VIAL IV ONE (13:00)
[2021-12-11] MEDS ORDERED: ONDANSETRON 4 MG/2 ML VIAL ONE (13:35)
[2021-12-11] MEDS ORDERED: PANTOPRAZOLE SODIUM 40 MG VIAL ONE (13:35)
[2021-12-11 14:18] LABS: HEMATOCRIT 51.5 % (36.7-47.1); MEAN CORPUSCULAR HEMOGLOBIN 31.2 uug (23.8-33.4); MEAN CORPUSCULAR VOLUME 91.4 fL (73.0-96.2); PLATELET COUNT (AUTO) 251 K/uL (152-348)
[2021-12-11 14:28] LABS: CREATININE 0.8 mg/dL (0.6-1.3); POTASSIUM 3.7 mmol/L (3.5-5.1)
--- NOTE | 2021-12-11 14:30 | NUR ---
Pt states he has no pain or nausea
[2021-12-11 14:34] LABS: BILIRUBIN,DIRECT 0.1 mg/dL (0.0-0.2); BILIRUBIN,TOTAL 0.7 mg/dL (0.2-1.0); TOTAL PROTEIN, SERUM 7.5 g/dL (6.4-8.2)
[2021-12-11] MEDS ORDERED: ONDA8TAB13 PO (15:06)
[2021-12-11] MEDS ORDERED: OMEP40CA21 PO (15:06)
--- NOTE | 2021-12-11 15:18 | NUR ---
Removed IV intact, site okay, bandaged.
--- NOTE | 2021-12-11 15:19 | NUR ---
Pt tollerated ice chips well. Gave pt RX and d/c instructions, pt verbalized understanding.
== END 2021-12-11 15:26 | disposition home or self-care (01) ==
LOC: ER 12:29
DX: K29.70 Gastritis, unspecified, without bleeding (principal); E86.0 Dehydration; R11.2 Nausea with vomiting, unspecified; Z82.49 Family history of ischemic heart disease and other diseases of the circulatory system; J45.909 Unspecified asthma, uncomplicated; F12.10 Cannabis abuse, uncomplicated
CPT/HCPCS: 36415; 80048; 80076; 83690; 85025; 96361; 96374; 96375; 99284; C9113; J2405; A4663; J7040

== ENCOUNTER 2024-07-28 02:39 | Emergency (ER) | payer OTHER ==
[~2024-07-28] VITALS: Ht 162.6 cm; Wt 74.4 kg
[~2024-07-28 02:39] MED LIST changes: +ALBU8.5H8 INH; +OMEP40CA21 PO; +ONDA8TAB13 PO; +PRED20TA PO; -[UNRECOGNIZED DRUG - REMARK]
[2024-07-28] MEDS ORDERED: ONDANSETRON ODT 4 MG TAB.RAPDIS ONE (03:09)
[2024-07-28] MEDS ORDERED: HYDROCODONE/APAP 10-325 MG TABLET ONE (03:09)
[2024-07-28] MEDS: HYDROCODONE/APAP 10-325 MG TABLET PO ONE (03:10)
[2024-07-28] MEDS: ONDANSETRON ODT 4 MG TAB.RAPDIS SL ONE (03:11)
[2024-07-28] MEDS ORDERED: ALBU8.5H8 IH (03:33)
[2024-07-28] MEDS ORDERED: HYDR-3980 PO (03:33)
[2024-07-28 03:45] VITALS: BP 128/82; TEMP 97.8; O2SAT 98
== END 2024-07-28 03:46 | disposition home or self-care (01) ==
LOC: ER 02:44
DX: M25.511 Pain in right shoulder (principal); Z76.0 Encounter for issue of repeat prescription; J45.909 Unspecified asthma, uncomplicated; F12.90 Cannabis use, unspecified, uncomplicated; Z79.52 Long term (current) use of systemic steroids; Z87.19 Personal history of other diseases of the digestive system; X58.XXXA Exposure to other specified factors, initial encounter; Y93.55 Activity, bike riding; Y92.89 Other specified places as the place of occurrence of the external cause; Y99.8 Other external cause status
CPT/HCPCS: 73020; A4606; A4663; Q0162

== ENCOUNTER 2024-11-08 23:30 | Emergency (ER) | payer OTHER ==
[~2024-11-08] VITALS: Ht 162.6 cm; Wt 74.4 kg
[~2024-11-08 23:30] MED LIST changes: +ALBU8.5H8 IH; +HYDR-3980 PO
[2024-11-09] MEDS ORDERED: KETOROLAC TROMETHAMINE 30 MG INJ ONE (00:13)
[2024-11-09] MEDS ORDERED: AMOXICILLIN-CLAVUL 875-125MG TABLET ONE (00:13)
[2024-11-09] MEDS ORDERED: HYDROCODONE/APAP 10-325 MG TABLET ONE (00:14)
[2024-11-09] MEDS: KETOROLAC TROMETHAMINE 30 MG INJ IM ONE (00:21)
[2024-11-09] MEDS: AMOXICILLIN-CLAVUL 875-125MG TABLET PO ONE (00:22)
[2024-11-09] MEDS: HYDROCODONE/APAP 10-325 MG TABLET PO ONE (00:22)
[2024-11-09] MEDS ORDERED: HYDR-3980 PO (00:25)
[2024-11-09] MEDS ORDERED: AMOX-430 PO (00:25)
[2024-11-09] MEDS ORDERED: IBUP-1955 PO (00:25)
[2024-11-09 00:33] VITALS: BP 138/85; TEMP 98.4; O2SAT 99
== END 2024-11-09 00:34 | disposition home or self-care (01) ==
LOC: ER 23:34
DX: K02.9 Dental caries, unspecified (principal); K04.7 Periapical abscess without sinus; R03.0 Elevated blood-pressure reading, without diagnosis of hypertension; F12.90 Cannabis use, unspecified, uncomplicated; J45.909 Unspecified asthma, uncomplicated; Z79.52 Long term (current) use of systemic steroids; Z87.19 Personal history of other diseases of the digestive system
CPT/HCPCS: A4606; A4663; J1885